=== PATIENT | male | born 1940 | race Caucasian/White ===

== ENCOUNTER 2025-01-14 11:05 | Inpatient (IN) | payer MEDICARE, OTHER, SELFPAY ==
[2025-01-13 21:22] VITALS: BP 147/84
[2025-01-13 21:47] LABS: Urine Albumin Negative (Neg - Trace); Urine Bilirubin Negative (Negative); Urine Character Clear (Clear); Urine Color Yellow; Urine Glucose Negative (Negative); Urine Ketone Negative (Negative); Urine Leukocyte Negative (Negative); Urine Nitrite Negative (Negative); Urine Occult Blood Negative (Negative); Urine Urobilinogen Negative (Neg - 1+)
[2025-01-14 01:02] VITALS: BMI 31.2
[2025-01-14 01:03] VITALS: BP 158/74
[2025-01-14 01:49] LABS: ALT (SGPT) 18 U/L (0-50); AST (SGOT) 23 U/L (17-59); Albumin 4.6 g/dl (3.5-5.0); Alkaline Phosphatase 40 U/L (38-126); Blood Urea Nitrogen 29 mg/dl (9-20); Calcium 9.7 mg/dl (8.4-10.2); Carbon Dioxide 25 mmol/L (22-30); Chloride 102 mmol/L (98-107); Estimated Creatinine Clearance 36 ml/min; Glucose 137 mg/dl (70-99); Potassium 4.6 mmol/L (3.5-5.1); Sodium 134 mmol/L (135-145); Total Bilirubin 0.8 mg/dl (0.2-1.3); Total Protein 7.2 g/dl (6.3-8.2); eGFR 37.12
[2025-01-14 01:54] LABS: % Basophils 0.2 % (0-2); % Eosinophils 0.8 % (0-6); % Immature Granulocytes 0.6 % (0-0.5); % Lymphocytes 10.5 % (20.5-51.1); % Monocytes 11.9 % (1.7-9.3); Absolute Eosinophils 0.1 10^3/uL (0-0.7); Absolute Immature Granulocytes 0.1 10^3/uL (0-0.05); Absolute Lymphocytes 1.9 10^3/uL (1.2-3.4); Absolute Monocytes 2.1 10^3/uL (0.1-0.6); Absolute Neutrophils 13.4 10^3/uL (1.4-6.5); Hematocrit 33.7 % (39.0-52.0); Hemoglobin 11.4 g/dL (13.0-18.0); Mean Corp Hgb Conc. 33.8 g/dL (33.0-37.0); Mean Corpuscular Hgb 29.5 pg (27.0-31.0); Mean Corpuscular Volume 87.1 fL (80.0-94.0); Mean Platelet Volume 12.8 fL (7.4-10.4); Nucleated Red Blood Cells % 0 % (-); Platelet Count 153 10^3/uL (130-400); Red Blood Cell Count 3.87 10^6/uL (4.70-6.10); Red Cell Dist. Width 13.8 % (11.5-14.5); White Blood Cell Count 17.6 10^3/uL (4.8-10.8)
[2025-01-14 03:14] VITALS: BP 162/87
--- NOTE | 2025-01-14 06:59 | ED.GENMED ---
History of Present Illness
General
Chief Complaint: Male Genito-Urinary Symptoms
Source: patient and family
Exam Limitations: none
Time Seen by Provider: 01/14/25 04:20
Nursing documentation reviewed up to this point in time: agreed with
History of Present Illness
History of Present Illness:
Pleasant 84-year-old male presents from home with urinary retention and constipation. He states that he was able to urinate this morning without issue. he does report constipation. He states that he had a bowel movement yesterday but today he has
not been able to move his bowels. He does have stool per rectum. Denies fever, chills, nausea or vomiting.
Vital signs are stable. Patient not hypoxic
Nursing note reviewed. I agree with nursing documentation up to this point in time.
Home Meds and allergies reviewed.
NUMBER AND COMPLEXITY OF PROBLEMS ADDRESSED AT THE ENCOUNTER
� Chronic conditions affecting care: High blood pressure, hyperlipidemia, sleep apnea, neuropathy, difficulty with balance, aortic stenosis, heart murmur,
� Acute Exacerbation and/or Progression of Chronic Illness: This appears to be acute problem
� Differential Diagnosis includes: Constipation, urinary retention, stercoral colitis
AMOUNT AND/OR COMPLEXITY OF DATA TO BE REVIEWED AND ANALYZED
I performed an independent evaluation of the following and my interpretation is:
EKG:
Pulse Ox: Not Hypoxic
Photograph Tinter: Sinus Rhythm
CT:
X-rays:
Ultrasound:
Laboratory Studies: 17.3 white count
Other:
Review of other/old records:
Clinical information was obtained by an independent historian:
Prescriptions/Medications Considered but not given:
Further testing considered but not performed:
RISK OF COMPLICATIONS AND/OR MORBIDITY OR MORTALITY OF PATIENT MANAGEMENT
Social determinants of health affecting care: Good Social Support, present at the bedside
Discussion with other providers:
Escalation of care including admission/observation vs risk of discharge considered: After being observed in the emergency department, patient is not stable for discharge. Patient to be admitted
CRITICAL CARE NOTE: Not applicable
Total Time (exclusive of procedures):
Update:
Past History
Past History
ED Past Medical History: Cancer (Skin CA), HTN, Hypercholesterolemia, NIDDM and Other (CPAP for sleep apnea, Aortic stenosis, )
ED Past Surgical History: Cardiac (Aortic valve repair, ) and Other (cataract OU, Mohs surgery)
Social History
Tobacco: Former smoker
Alcohol: None
Personal:
Living: with family
Review of Systems
Review of Systems
Allergies reviewed?: Yes
All Other Systems: ROS reviewed and negative except as documented in HPI and ROS
ABD/GI: Reports abdominal pain and diarrhea
Psychiatric: Reports anxiety
Phy Exam
General Physical Exam
General Presentation: well appearing and no apparent distress
General Skin: warm and dry
General Habitus: normal
General Mental: alert
General Hydration: appears well hydrated
ENT Exam
ENT Exam: EOMI, pharynx normal, neck supple and normocephalic
Eye Exam
Eye Exam: PERRL, cornea clear and conjunctiva normal
Cardiovascular Exam
Cardiovascular Exam: regular rate/rhythm, no edema, no murmur and normal peripheral pulses
Pulmonary Exam
Pulmonary Exam: lungs clear, no respiratory distress, no rales, no crackles, no rhonchi, no stridor, no wheezing and no cough
Gastrointestinal Exam
Gastrointestinal Exam: normal bowel sounds, soft, no organomegaly, no pulsatile mass and non distended
Palpation: generalized: Minimal tenderness
Genitourinary Exam Male
Exam Male: other (Quiros catheter in place)
Neurological Exam
Neurological Exam: alert, oriented x3, no motor deficits and speech normal
Musculoskeletal Exam
Musculoskeletal Exam: full ROM and no edema
Skin Exam
Skin Exam: normal color, warm/dry, no rash and no petechia
Psychiatric Exam
Psychiatric Exam: normal mood/affect
Course
Orders/Labs/Results
Orders:
Orders
01/13/25 21:39
Urinalysis Reflex To Culture Urgent
Date Specimen was Collected: 01/13/25
Time Specimen was Collected: 21:24
01/14/25 01:29
CMP [Comprehensive Metabolic Panel] Urgent
Complete Blood Count/With Diff Urgent
01/14/25 04:33
Abdomen/Pelvis w Contrast CT [CT Abd/pelvis W Iv Cont] Urgent
Comment:
Reason For Exam: abd bloating, constipation, urinary retention
01/14/25 05:53
Enema- Treatment ONCE
Type: Milk of Molasses
Abnormal Lab Results
01/14/25
01:29
WBC 17.6 H 10^3/uL
(4.8-10.8)
RBC 3.87 L 10^6/uL
(4.70-6.10)
Hgb 11.4 L g/dL
(13.0-18.0)
Hct 33.7 L %
(39.0-52.0)
MPV 12.8 H fL
(7.4-10.4)
Abs Immat Gran (auto) 0.1 H 10^3/uL
(0-0.05)
Absolute Neuts (auto) 13.4 H 10^3/uL
(1.4-6.5)
Absolute Monos (auto) 2.1 H 10^3/uL
(0.1-0.6)
Immature Gran % 0.6 H %
(0-0.5)
Neutrophils % 76.0 H %
(42.2-75.2)
Lymphocytes % 10.5 L %
(20.5-51.1)
Monocytes % 11.9 H %
(1.7-9.3)
Sodium 134 L mmol/L
(135-145)
BUN 29 H mg/dl
(9-20)
Creatinine 1.8 H mg/dL
(0.7-1.3)
Glucose 137 H mg/dl
(70-99)
01/14/25 01:29
01/14/25 01:29
Vital Signs
Initial and Last Documented VS:
Initial Vital Signs
Temp Pulse Resp BP Pulse Ox
98.4 F 94 16 147/84 98
01/13/25 21:22 01/13/25 21:22 01/13/25 21:22 01/13/25 21:22 01/13/25 21:22
Last Documented Vital Signs
Temp Pulse Resp BP Pulse Ox
99.3 F 77 20 162/87 97
01/14/25 03:14 01/14/25 03:14 01/14/25 03:14 01/14/25 03:14 01/14/25 03:14
*Radiology
Radiology exam reviewed: radiology read reviewed
*Pulse Oximetry
Patient hypoxic: no
*Critical Care Note
Total Time (30-74mins, 75-104mins- exclusive of procedures): Not Applicable
Update Note
Update Note:
NAME: SHADIMICAH
DATE OF EXAM: 01/14/2025
Patient No: [id number]
Physician: CHAITANYA^Una
Date of : 1940
Past Medical History (entered by Technologist):
Reason For Exam (entered by Technologist):
Other Notes (entered by Technologist): Pt complains of unable to urinate and constipation. Last time pt urinated was this AM
Prior sent
Additional Information (per [facility]iologist):
CT ABDOMEN AND PELVIS WITH IV CONTRAST
IMPRESSION
Mild to moderate stool ball in the rectum. Mild perirectal and presacral stranding, may be related to stool ball and reflect proctitis/stercoral colitis. No evidence for abscess, pneumatosis or free air. Please clinically correlate.
Mild enlargement the prostate. Quiros catheter in the bladder. Mild bilateral symmetric perinephric stranding, but no evidence of stones or obstruction. This is often physiologic, difficult to exclude infection or acute kidney injury, consider
correlation with urinalysis and renal function.
Mild to moderate degenerative changes in the spine no definite central canal stenosis.
Nonobstructing stone in the left kidney. No hydronephrosis or hydroureter.
Indeterminant low-density lesions within the kidneys, may represent small cysts.
Diverticulosis without evidence of diverticulitis.
Normal appendix.
Aorta demonstrates no evidence of aneurysm or dissection, moderate atherosclerosis.
Gallbladder is unremarkable
Pacemaker. TAVR. Mild fibrotic changes in the lung bases
ED Attending Note
-
Portions of this chart may have been created with voice recognition software.� Occasional wrong word or��sound alike� substitutions may have occurred due to the inherent limitations of voice recognition software.
Discharge Plan
Departure
Patient Disposition: Admit
Date of Disposition: 01/14/25
Time of Disposition: 07:06
Presentation/result/management discussed w/ accepting MD/DO: Hospitalist
Discharge Problem:
Abdominal pain, Acute urinary retention, Possible stercoral colitis
Prescriptions:
No Action
aspirin [Florina Low Dose Aspirin] 81 MG tablet,delayed release (DR/EC)
81 mg PO QHS
rosuvastatin 20 mg Tablet
20 mg PO NOON
losartan 50 mg Tablet
50 mg PO NOON
omeprazole 20 mg Capsule,Delayed Release(Dr/Ec)
20 mg PO NOON
magnesium 250 mg Tablet
500 mg PO QHS
glipizide 5 mg Tablet
5 mg PO QPM
cinacalcet 30 mg Tablet
30 mg PO NOON
fenofibric acid (choline) [Trilipix] 135 mg Capsule,Delayed Release(Dr/Ec)
135 mg PO NOON
Eliquis 2.5 mg Tablet
2.5 mg PO BID
vitamin E (dl, acetate) 180 mg (400 unit) Capsule
180 mg PO DAILY MDD 2 tabs daily
sildenafil 100 mg Tablet
100 mg PO DAILY PRN (Reason: ED)
Ozempic 0.25 mg or 0.5 mg (2 mg/3 mL) Pen Injector
0.5 mg SC QWEEK
Sleep3 10-200-50 mg Tablet,Ir,Delayed Rel,Biphasic
1 tab PO HS
iron
65 mg PO DAILY
Referrals:
Rizwan Betts MD [Family Provider] -
Interventions
Interventions:
*Risk Screen - Suicide Last Done: 01/13/25 21:22
*General Assessment Last Done: 01/13/25 21:22
*Neglect/Abuse Screening Last Done: 01/13/25 21:22
*ED- Fall Risk Assessment Last Done: 01/13/25 21:22
*ED COVID-19 Vaccine History Last Done: 01/13/25 21:22
ED-Male Genitourinary Assessment Last Done: 01/14/25 01:33
Discharge Date and Time
Print Language: AUSTRALIAN
[2025-01-14 07:21] VITALS: BP 156/72
[2025-01-14] MEDS: ZOSYN 100 IV (07:29)
[2025-01-14 08:09] LABS: Lactic Acid 1.2 mmol/L (0.7-2.0)
--- NOTE | 2025-01-14 10:30 | HPS.HSE ---
Family Physician
-
Family Physician: Rizwan Betts
Chief Complaint
-
constipation, urinary retention
History of Present Illness
84 y/o M, hx of s/p TAVR, hx of pacer, Essential HTN, HLD, LENNY on CPAP, GERD presents to ER for acute urinary retention and constipation. Patient reports no prior issue with either previously. Yesterday he was unable to urinate and felt rectal
pain but could not have a bowel movement. He reports decreased appetite as well in the last 24 hours. This morning he was able to urinate after transient use of a Quiros but remained constipated, presenting to ER. He was treated with an enema with a
bowel movement (hard per patient) with relief of rectal pain.
CT revealed evidence of stercoral colitis and patient admitted.
Medical History
Past Medical History
Past Medical History: Reports Other ( s/p TAVR, hx of pacer, Essential HTN, HLD, LENNY on CPAP, GERD, CKD stage 3b)
Past Surgical History: Reports Other (Cardiac (Aortic valve repair, ) and Other (cataract OU, Mohs surgery))
Social History
Tobacco: Former Smoker
Alcohol: None
Personal:
Living: With Family
Family History
Family History: Not pertinent
Allergies / Home Medications
Allergies reflects when Allergies were last updated in [employer].
Home Medications with original date entered in [employer]
Allergy/Medication List:
Allergies
Allergy/AdvReac Type Severity Reaction Status Date / Time
clindamycin Allergy Intermediate Rash Verified 07/07/23 20:56
Home Medications
aspirin 81 mg tablet,delayed release (Florina Low Dose Aspirin) 81 mg PO QHS Heart Disease/Condition 05/02/15
apixaban 2.5 mg tablet (Eliquis) 2.5 mg PO BID Blood Clot Prevention/Tx 02/01/23
cinacalcet 30 mg tablet 30 mg PO NOON Thyroid 02/01/23
losartan 50 mg tablet 50 mg PO NOON Blood Pressure 02/01/23
omeprazole 20 mg capsule,delayed release 20 mg PO NOON GERD 02/01/23
rosuvastatin 20 mg tablet 20 mg PO NOON High Cholesterol 02/01/23
vitamin E (dl, acetate) 180 mg (400 unit) capsule 180 mg PO DAILY Supplement 02/18/23
acetaminophen 500 mg tablet (Tylenol Extra Strength) 1,000 mg PO HSPRN PRN mild pain 01/14/25
fenofibric acid (choline) 135 mg capsule,delayed release 135 mg PO NOON 01/14/25
ferrous sulfate 325 mg (65 mg iron) tablet 325 mg PO DAILY 01/14/25
glipizide 5 mg tablet, extended release 24 hr 5 mg PO QPM 01/14/25
magnesium oxide 500 mg PO HS 01/14/25
melatonin 10 mg-thean [id number] tablet,immed-ext rel (Sleep3) 1 tab PO HSPRN PRN sleep 01/14/25
semaglutide 0.25 mg or 0.5 mg (2 mg/3 mL) subcutaneous pen injector (Ozempic) 0.5 mg SC WE@1300 01/14/25
sildenafil 100 mg tablet 100 mg PO DAILYPRN PRN ED 01/14/25
Review of Systems
-
A 12 point ROS was completed and negative except as noted: Yes
Physical Exam
Vital Signs
Vital Signs
Temp Pulse Resp BP Pulse Ox
98.9 F 86 18 156/72 97
01/14/25 07:21 01/14/25 07:21 01/14/25 07:21 01/14/25 07:21 01/14/25 07:21
Physical Exam
General: No Apparent Distress
HEENT: NormoCephalic and Anicteric
Respiratory: Clear; No Wheezes or Rales
Cardiac: S1/S2 and Regular Rhythm
GI: Soft, Non Tender and Distended (slightly)
Neuro: AO x 3
Psych: Calm
Laboratory Results
-
01/14/25 01:29
01/14/25 01:29
Laboratory Results
Lactic Acid Cancelled 01/14/25 11:15
Total Bilirubin 0.8 mg/dl (0.2-1.3) 01/14/25 01:29
AST 23 U/L (17-59) 01/14/25 01:29
ALT 18 U/L (0-50) 01/14/25 01:29
Alkaline Phosphatase 40 U/L (38-126) 01/14/25 01:29
Data Reviewed
-
CT Scan: Report Reviewed by me
Lab Data: Labs Reviewed by me
Impression/Plan
-
Assessment:
Acute constipation
Stercoral colitis associated with fecal impaction in rectum
- CT: Mild to moderate stool ball in the rectum. Mild perirectal and presacral stranding, may be related to stool ball and reflect proctitis/stercoral colitis. No evidence for abscess, pneumatosis or free air.
- s/p Enema in ER with + bowel movement (hard, painful per patient)
- introduce stool regimen BID (Miralax + Sennosides) to regulate
- diet: LRD
- IV Zosyn for colitis pattern
Acute urinary retention, related to acute constipation
- Mild enlargement the prostate. Quiros catheter in the bladder. Mild bilateral symmetric perinephric stranding, but no evidence of stones or obstruction.
- s/p Quiros now removed in ER
- BS/SC protocol
- may need Flomax
- may need OP Urology f/u
CKD stage 3b
- follow BMP
s/p TAVR
hx of pacer
- continue ASA/Eliquis
Essential HTN
- continue Losartan
Type 2 DM
- continue Glipizide
- holding Ozempic
- SSI
- A1c:
HLD
- on Fenofibric acid
LENNY on CPAP
- HS CPAP
GERD
- PPI
DVT ppx: Eliquis
Code: Full
[2025-01-14] MEDS: NSS 1000 IV (14:50)
[2025-01-14] MEDS: COZAAR 50 MG PO (14:50)
--- NOTE | 2025-01-14 15:46 | CM ---
CM met with pt bedside
Pt resides with his spouse in a [place] with [address] through garage
Pt is indep with his ADLs with use of a SPC, drives+
He has a WW for use as needed
PCP- Rizwan Betts
Rx- [facility]
Spouse at home recovering from B/L hip fx/replacement
Pt currently caregiving in her recovery
Pt currently attending outpt cradiac rehab at [facility] outpt center 2x weekly
Pt is a vet and they provide assistance with medications
Pt notes ongoing issues with Ozempic copays ($650) monthly
Currently working with [facility] to [facility]- noting he is closed to his $2,000 out of pocket max
Discharge Disposition- anticipate home, follow for needs
[2025-01-14 16:12] VITALS: BP 126/81
[2025-01-14] MEDS: ZOSYN 50 IV ×2 (16:13→20:21)
[2025-01-14] MEDS: CRESTOR 20 MG PO (16:13)
[2025-01-14] MEDS: TRICOR 145 MG PO (16:13)
[2025-01-14] MEDS: PROTONIX 40 MG PO (16:13)
[2025-01-14] MEDS: SENSIPAR 30 MG PO (16:13)
[2025-01-14 17:14] LABS: Glucose - Point of Care 53 mg/dl (70-99)
[2025-01-14 17:29] LABS: Glucose - Point of Care 91 mg/dl (70-99)
[2025-01-14 19:30] VITALS: BP 125/69
[2025-01-14 19:49] LABS: Glucose - Point of Care 162 mg/dl (70-99)
[2025-01-14] MEDS: ELIQUIS 2.5 MG PO (20:20)
[2025-01-14] MEDS: ASPIR LOW (ENTERIC COATED) 81 MG PO (21:08)
[2025-01-14 21:36] LABS: Glucose - Point of Care 119 mg/dl (70-99)
[2025-01-14 23:08] VITALS: BP 123/80
[2025-01-15] MEDS: ZOSYN 50 IV ×2 (02:47→09:57)
[2025-01-15 03:10] VITALS: BP 123/73
[2025-01-15 03:33] LABS: Glucose - Point of Care 129 mg/dl (70-99)
[2025-01-15 07:00] VITALS: BP 127/74
[2025-01-15 07:57] LABS: Hematocrit 32.7 % (39.0-52.0); Hemoglobin 10.9 g/dL (13.0-18.0); Mean Corp Hgb Conc. 33.3 g/dL (33.0-37.0); Mean Corpuscular Hgb 29.3 pg (27.0-31.0); Mean Corpuscular Volume 87.9 fL (80.0-94.0); Mean Platelet Volume 12.5 fL (7.4-10.4); Platelet Count 136 10^3/uL (130-400); Red Blood Cell Count 3.72 10^6/uL (4.70-6.10); Red Cell Dist. Width 13.9 % (11.5-14.5); White Blood Cell Count 8.9 10^3/uL (4.8-10.8)
[2025-01-15 08:40] LABS: Blood Urea Nitrogen 20 mg/dl (9-20); Carbon Dioxide 26 mmol/L (22-30); Chloride 106 mmol/L (98-107); Estimated Creatinine Clearance 34 ml/min; Glucose 90 mg/dl (70-99); Potassium 3.9 mmol/L (3.5-5.1); Sodium 137 mmol/L (135-145); eGFR 34.79
[2025-01-15 09:01] LABS: Glucose - Point of Care 114 mg/dl (70-99)
[2025-01-15 09:07] LABS: Glycohemoglobin (HgbA1c) 6.2 % (4.0-5.6)
[2025-01-15 09:33] VITALS: BP 139/84; PULSE 90; O2SAT 98
[2025-01-15 09:43] VITALS: BP 139/84; PULSE 90; O2SAT 95
[2025-01-15] MEDS: ELIQUIS 2.5 MG PO (09:58)
[2025-01-15] MEDS: FEOSOL 325 MG PO (09:58)
[2025-01-15 11:00] VITALS: BP 113/59
--- NOTE | 2025-01-15 11:54 | W.PN.HOSP.TC ---
Today's Communication/Plan
-
dc to home today
Assessment / Plan
Assessment / Plan
Assessment:
Acute constipation
Stercoral colitis associated with fecal impaction in rectum
- CT: Mild to moderate stool ball in the rectum. Mild perirectal and presacral stranding, may be related to stool ball and reflect proctitis/stercoral colitis. No evidence for abscess, pneumatosis or free air.
- s/p enema and bowel regimen with several BMs
- daily Miralax x 1 week then prn
- Augmentin x 7 days for colitis
- PCP f/u
Acute urinary retention, related to acute constipation
- Mild enlargement the prostate. Quiros catheter in the bladder. Mild bilateral symmetric perinephric stranding, but no evidence of stones or obstruction.
- s/p Quiros now removed in ER
- BS/SC protocol
- now voiding ok
- OP Urology f/u
CKD stage 3b
- follow BMP
s/p TAVR
hx of pacer
- continue ASA/Eliquis
Essential HTN
- continue Losartan
Type 2 DM
- continue Glipizide
- holding Ozempic
- SSI
- A1c: 6.2%
HLD
- on Fenofibric acid
LENNY on CPAP
- HS CPAP
GERD
- PPI
DVT ppx: Eliquis
Code: Full
Anticipated Discharge: Today
Subjective/Interval History
-
Date of Service: January 15, 2025
resting comfortably, no complaints
multiple BMs
Objective Data
-
Labs:
Laboratory Results
01/15/25
07:36
WBC 8.9
Hgb 10.9 L
Hct 32.7 L
Plt Count 136
Sodium 137
Potassium 3.9
Chloride 106
Carbon Dioxide 26
BUN 20
Creatinine 1.9 H
Glucose 90
Calcium 9.0
Vital Signs:
Vital Signs
Temp Pulse Resp BP Pulse Ox
97.5 F 61 16 127/74 98
01/15/25 07:00 01/15/25 07:00 01/15/25 07:00 01/15/25 07:00 01/15/25 07:00
I&O
01/14/25 01/15/25 01/16/25
06:59 06:59 06:59
Intake Total 820 / 820
Output Total 1000 / 1000 1725 / 1725 350 / 350
Balance -1000 / -1000 -905 / -905 -350 / -350
Physical Exam
-
General: No Apparent Distress
HEENT: Normocephalic and Atraumatic
Respiratory: Negative Wheezes
Cardiac: Regular Rhythm and S1/S2
GI: Soft and Nontender
Genito-urinary: No Costovertebral Tender
Musculoskeletal: No Edema
Neuro: AO x 3
Psych: Calm
Data Reviewed
-
Total Time Spent with Patient (in minutes): 41
Labs: Labs Reviewed by me
--- NOTE | 2025-01-15 12:13 | W.DS.TRANS ---
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
-
Discharge Instructions:
Discharge Diagnosis/Procedures acute constipation with associated acute urinary
retention
Diet Diabetic, Carb Controlled
Activity As tolerated
Other Services VN
Instructions:
Stand-Alone Forms:
Changes to Home Medications: No
Discharge Medications:
DC Medications w/original date entered in [employer]
aspirin 81 mg tablet,delayed release (Florina Low Dose Aspirin) 81 mg PO QHS Heart Disease/Condition 05/02/15
apixaban 2.5 mg tablet (Eliquis) 2.5 mg PO BID Blood Clot Prevention/Tx 02/01/23
cinacalcet 30 mg tablet 30 mg PO NOON Thyroid 02/01/23
losartan 50 mg tablet 50 mg PO NOON Blood Pressure 02/01/23
omeprazole 20 mg capsule,delayed release 20 mg PO NOON GERD 02/01/23
rosuvastatin 20 mg tablet 20 mg PO NOON High Cholesterol 02/01/23
vitamin E (dl, acetate) 180 mg (400 unit) capsule 180 mg PO DAILY Supplement 02/18/23
acetaminophen 500 mg tablet (Tylenol Extra Strength) 1,000 mg PO HSPRN PRN mild pain 01/14/25
fenofibric acid (choline) 135 mg capsule,delayed release 135 mg PO NOON 01/14/25
ferrous sulfate 325 mg (65 mg iron) tablet 325 mg PO DAILY 01/14/25
glipizide 5 mg tablet, extended release 24 hr 5 mg PO QPM 01/14/25
magnesium oxide 500 mg PO HS 01/14/25
melatonin 10 mg-thean [id number] tablet,immed-ext rel (Sleep3) 1 tab PO HSPRN PRN sleep 01/14/25
semaglutide 0.25 mg or 0.5 mg (2 mg/3 mL) subcutaneous pen injector (Ozempic) 0.5 mg SC WE@1300 01/14/25
sildenafil 100 mg tablet 100 mg PO DAILYPRN PRN ED 01/14/25
amoxicillin 875 mg-potassium clavulanate 125 mg tablet 1 tab PO BID #12 tabs 01/15/25
polyethylene glycol 3350 17 gram oral powder packet 17 g PO BID #30 ea 01/15/25
Home Medication Changes
Pending Results: No
Total time spent discharging patient (in min): 42
--- NOTE | 2025-01-15 12:23 | CM ---
entered order for discharge.
SPoke with pt he said his son Marin will be driving him home today.
Offered VN he declined he said he will renew out pt PT at [facility]
PLAN Home no needs
[2025-01-15 12:57] LABS: Glucose - Point of Care 169 mg/dl (70-99)
[2025-01-15] MEDS: CRESTOR 20 MG PO (13:08)
[2025-01-15] MEDS: SENSIPAR 30 MG PO (13:08)
[2025-01-15] MEDS: COZAAR 50 MG PO (13:08)
[2025-01-15] MEDS: PROTONIX 40 MG PO (13:09)
[2025-01-15] MEDS: TRICOR 145 MG PO (13:09)
== END 2025-01-15 14:50 | disposition home or self-care (01) | DRG 392 ==
LOC: 1 ACUTE 11:05
PROVIDERS: Student in an Organized Health Care Education/Training Program; ADMITTING PHYSICIAN Internal Medicine; EMERGENCY PHYSICIAN Student in an Organized Health Care Education/Training Program; FAMILY PHYSICIAN Family Medicine
DX: K52.89 Other specified noninfective gastroenteritis and colitis (principal); K56.41 Fecal impaction; R33.9 Retention of urine, unspecified; N18.32 Chronic kidney disease, stage 3b; I12.9 Hypertensive chronic kidney disease with stage 1 through stage 4 chronic kidney disease, or unspecified chronic kidney disease; E11.22 Type 2 diabetes mellitus with diabetic chronic kidney disease; E78.00 Pure hypercholesterolemia, unspecified; G47.33 Obstructive sleep apnea (adult) (pediatric); K21.9 Gastro-esophageal reflux disease without esophagitis; E11.40 Type 2 diabetes mellitus with diabetic neuropathy, unspecified; Z79.899 Other long term (current) drug therapy; Z87.891 Personal history of nicotine dependence; Z95.0 Presence of cardiac pacemaker; Z95.2 Presence of prosthetic heart valve
CPT/HCPCS: 74177; 80048; 80053; 81003; 82962; 83036; 83605; 85025; 85027; 87040; 96365; 97162; 97166; 99285; Q9967